=== PATIENT | female | born 1965 | race African-American/Black ===

== ENCOUNTER 2021-09-29 11:04 | Emergency (ER) | payer MEDICAID ==
[~2021-09-29] VITALS: Ht 167.6 cm; Wt 112.0 kg
[2021-09-29] MEDS ORDERED: ACETAMINOPHEN 325MG TABLET PO ONE (13:30)
[2021-09-29] MEDS ORDERED: IBUPROFEN 400MG TABLET PO ONE (13:30)
[2021-09-29 14:09] LABS: CHLORIDE 95 mEq/L (98-107)
[2021-09-29 14:21] LABS: CLARITY URINE CLOUDY (CLEAR); COLOR URINE YELLOW (YELLOW); KETONES URINE 1+ (NEGATIVE); LEUKOCYTE ESTERASE URINE NEGATIVE (NEGATIVE); NITRITE URINE NEGATIVE (NEGATIVE); OCCULT BLOOD URINE NEGATIVE (NEGATIVE); PROTEIN URINE NEGATIVE (NEGATIVE); SPECIFIC GRAVITY URINE 1.015 (1.005-1.030)
[2021-09-29 16:25] VITALS: BP 132/71
== END 2021-09-29 16:27 | disposition home or self-care (01) ==
LOC: ER 11:04
DX: R51.9 Headache, unspecified (principal); E11.9 Type 2 diabetes mellitus without complications; I10 Essential (primary) hypertension; Z90.710 Acquired absence of both cervix and uterus; Z98.890 Other specified postprocedural states
CPT/HCPCS: 36415; 80048; 81003; 82962; 93005; 99284; Z7610

== ENCOUNTER 2023-12-23 10:34 | Emergency (ER) | payer OTHER ==
[~2023-12-23] VITALS: Ht 167.6 cm; Wt 113.0 kg
[2023-12-23 10:40] VITALS: O2SAT 100
[2023-12-23 11:10] LABS: CLARITY URINE TURBID (CLEAR); COLOR URINE DARK YELLOW (YELLOW); GLUCOSE URINE NEGATIVE (NEGATIVE); KETONES URINE 1+ (NEGATIVE); LEUKOCYTE ESTERASE URINE 3+ (NEGATIVE); NITRITE URINE POSITIVE (NEGATIVE); OCCULT BLOOD URINE 2+ (NEGATIVE); PH URINE 5.5 (4.5-8.0); PROTEIN URINE 3+ (NEGATIVE); SPECIFIC GRAVITY URINE 1.015 (1.005-1.030)
[2023-12-23 11:10] LABS: BASOPHILS % 0.5 % (0.0-2.0); EOSINOPHILS % 0.2 % (0.0-5.0); HEMATOCRIT. 29.1 % (36.0-48.0); HEMOGLOBIN. 9.5 g/dL (12.0-16.0); LYMPHOCYTES % 10.7 % (20.0-50.0); MEAN CORPUSCULAR HEMOGLOBIN 26.6 pg (28.0-32.0); MEAN CORPUSCULAR HGB CONC 32.6 g/dL (31.0-37.0); MEAN CORPUSCULAR VOLUME 81.7 fL (81.0-99.0); MEAN PLATELET VOLUME 8.3 fl (7.4-10.4); MONOCYTES % 12.9 % (2.0-8.0); NEUTROPHILS % 75.7 % (40.0-76.0); PLATELET 267 x1000/uL (130-400); RED BLOOD CELL COUNT 3.57 mill/uL (4.2-5.4); RED CELL DISTRIBUTION WIDTH 16.1 % (11.6-14.6); WHITE BLOOD COUNT 7.7 x1000/uL (4.5-11.0)
[2023-12-23 11:16] LABS: CARBON DIOXIDE 26 mEq/L (21-32); CHLORIDE 98 mEq/L (98-107); POTASSIUM 3.4 mEq/L (3.5-5.1); SODIUM 134 mEq/L (136-145)
[2023-12-23 11:17] LABS: CALCIUM 9.5 mg/dL (8.7-10.4)
[2023-12-23 11:20] LABS: PROTHROMBIN TIME 10.9 sec (9.6-11.0)
[2023-12-23 11:21] LABS: CREATININE 1.4 mg/dL (0.6-1.0)
[2023-12-23 11:22] LABS: GLUCOSE 106 mg/dL (70-105); UREA NITROGEN BLOOD 25 mg/dL (9-23)
[2023-12-23 11:23] LABS: ALANINE AMINOTRANSFERASE 52 IU/L (10-49); ALBUMIN 4.8 g/dL (3.2-4.8); ASPARTATE AMINOTRANSFERASE 48 IU/L (<34)
[2023-12-23 11:24] LABS: BILIRUBIN DIRECT 0.5 mg/dL (<=3.0); BILIRUBIN TOTAL 1.3 mg/dL (0.1-1.0); PROTEIN TOTAL 8.6 g/dL (6.0-8.3)
[2023-12-23 11:35] LABS: TROPONIN I HIGH SENSITIVITY < 4 ng/L (3.0-34)
[2023-12-23 11:45] LABS: RBC URINE 0-2 /hpf (0-2); WBC URINE TNTC /hpf (0-2)
[2023-12-23 11:46] LABS: BACTERIA URINE 3+; SQUAMOUS EPITHELIAL CELL URINE 1+ /lpf (RARE/1+)
[2023-12-23 17:24] LABS: TROPONIN I HIGH SENSITIVITY < 4 ng/L (3.0-34)
[2023-12-23] MEDS ORDERED: LEVO-65 MT (18:44)
[2023-12-23] MEDS ORDERED: NAPR-681 MT (18:44)
[2023-12-23] MEDS ORDERED: KETOROLAC 60MG/2ML VIAL IM ONE (18:45)
[2023-12-23] MEDS: LEVOFLOXACIN 500MG TABLET PO ONE (19:07)
[2023-12-23] MEDS: KETOROLAC 30MG/ML VIAL IM NR (19:24)
[2023-12-23] MEDS: ACETAMINOPHEN 325MG TABLET PO ONE (19:24)
[2023-12-23 19:25] VITALS: BP 135/76; PULSE 96; RESP 15; TEMP 98.2
== END 2023-12-23 19:27 | disposition home or self-care (01) ==
LOC: ER 10:34
DX: N39.0 Urinary tract infection, site not specified (principal); E11.9 Type 2 diabetes mellitus without complications; I10 Essential (primary) hypertension; Z90.710 Acquired absence of both cervix and uterus
CPT/HCPCS: 99285; 74176; 71045; 80076; 80048; 81003; 83880; 83690; 85025; 85610; 87086; 87186; 84484; 87077; 36415; 93005; 96372; J1885